=== PATIENT | female | born 1980 | race Caucasian/White ===

== ENCOUNTER 2025-01-11 01:04 | Outpatient (CLI) | payer BC, SELFPAY ==
--- NOTE | 2025-01-11 07:00 | DI.US_ITS ---
Exam(s) US NEEDLE LOCAL OTHER WO RAD EXAM: Isthmus nodule meeting criteria for biopsy,MULTINODULAR THYROID,E04.2 COMPARISON: No exams were available for comparison TECHNIQUE: Ultrasound performed using standard protocol. FINDINGS: Sonography was provided for Dr. Packer during the performance of a ultrasound-guided thyroid nodule biopsy. Please refer to the procedure report for complete details. DATA REPOSITORY:
--- NOTE | 2025-01-11 11:20 | PAPNONF_PTH ---
PATIENT: Bridgette Samayoa LOC: [facility] U#:[id number] AGE/SX: 44/F ROOM: RE01/11/[address]: Aurelio Packer MD : [id number] BED: DIS: 01/11/2025 SPEC #: [id number] RECD: 01/11/25 12:48 STATUS: CLARICE REQ #: [id number] PETER: 01/11/25 11:[address]: Aurelio Packer DEPT: [facility] Cytology RECD BY: Magnolia Lobo ENTERED: 01/11/25 12:49 SP TYPE: MERARY ECHOLS DR: Mckenzie Joe Tissues: 1 - BODY FLUID CYTO-FINE NEEDLE [facility] Procedures: BODY FLUID CYTO-FINE NEEDLE ASPIRATE[facility] Comments: [id number] (PATH FNA CONSULT) (REFRIGERATED)
--- NOTE | 2025-01-11 11:38 | OPPNE_ITS ---
Date of service: 01/11/25 Time of Service: 11:38 Procedure Note Date of procedure: 01/11/25 Procedure: Ultrasound-guided FNA, isthmus nodule, pathology present Surgeon/Proceduralist/Physician: Aurelio Packer Procedure Diagnosis: Isthmus nodule meeting criteria for biopsy Procedure Indications: The patient has an isthmus nodule meeting criteria for biopsy. Options were explained to the patient regarding further management. She elected to undergo the above procedure. Consent was filled and signed prior to procedure. Risks including bleeding, infection, need for further treatment were discussed at length. Procedure Description: The patient was positioned in supine position and prepped and draped in appropriate fashion. Her neck was slightly extended. Ultrasound was used to localize the isthmus nodule, and then 1% lidocaine with 1/100,000 epinephrine was injected in the skin and subcutaneous tissues overlying the nodule. A 25- gauge needle was then passed into the thyroid nodule, and used to collect specimen. Pathology examined the specimen and felt that there was enough colloid, and other benign features that affirma would not be indicated. After ensuring adequate cellularity, and ensuring adequate hemostasis, a sterile dressing was applied and the patient was allowed to sit, stand, and ambulate. H er vital signs remained stable. She tolerated the procedure well. She will remove the bandage in a couple of hours and not replace it. She will avoid anything strenuous today and use ibuprofen or Tylenol for any discomfort. She will call if she does not hear from me within 1 week with regard to pathology or if she has any interval concerns. She had no further questions. She is comfortable with this plan.
== END 2025-01-11 01:24 ==
LOC: DI 01:04
PROVIDERS: PCP Nurse Practitioner; Visit Provider Otolaryngology
DX: E04.2 Nontoxic multinodular goiter (principal)
CPT/HCPCS: 10005; 76942; 88104